=== PATIENT | female | born 1940 | race Two or more races ===

== ENCOUNTER → 2017-07-12 | Outpatient (CLI) | payer OTHER ==
[~2017-07-12] MED LIST: INTEGRA PLUS C1 EACH PO
== END | disposition home or self-care (01) ==
LOC: RAD 501 08:26
DX: S42.265A Nondisplaced fracture of lesser tuberosity of left humerus, initial encounter for closed fracture (principal)

== ENCOUNTER 2021-04-29 10:37 | Outpatient (CLI) | payer OTHER | END 2021-04-29 10:53 | disposition home or self-care (01) | LOC: RAD 10:37 | PROVIDERS: ATTEND Orthopaedic Surgery | DX: M25.551 Pain in right hip (principal) ==

== ENCOUNTER 2021-05-06 11:08 | Outpatient (CLI) | payer OTHER | END 2021-05-06 11:16 | disposition home or self-care (01) | LOC: RAD 11:08 | PROVIDERS: ATTEND Orthopaedic Surgery | DX: I70.0 Atherosclerosis of aorta (principal); M54.59 Other low back pain ==